=== PATIENT | female | born 1995 | race American Indian/Alaskan Native ===

== ENCOUNTER 2017-02-06 15:46 | Emergency (ER) | payer SELFPAY ==
[2017-02-06 18:20] LABS: Basophils % (Auto) 0.5 % (0.0-1.8); Eosinophils % (Auto) 0.8 % (0.0-4.3); Hematocrit 38.8 % (30.3-42.9); Hemoglobin 12.6 gm/dl (10.1-14.3); Mean Corpuscular HGB Conc 33 % (30-34); Mean Corpuscular Hemoglobin 27 pg (28-32); Mean Corpuscular Volume 83 fl (79-97); Platelet Count 242 K/mm3 (140-440)
[2017-02-06 18:30] LABS: Anion Gap 16 mmol/L; Blood Urea Nitrogen 8 mg/dL (7-17); Calcium 9.5 mg/dL (8.4-10.2); Carbon Dioxide 27 mmol/L (22-30); Chloride 99.9 mmol/L (98-107); Glucose 116 mg/dL (65-100); Potassium 3.9 mmol/L (3.6-5.0); Sodium 139 mmol/L (137-145)
[2017-02-06 18:38] LABS: Bacteria,Urine 1+ /HPF (Negative); Bilirubin,Urine NEG (Negative); Blood,Urine NEG (Negative); Ketones,Urine TR mg/dL (Negative); Leukocyte Esterase,Urine TR (Negative); Mucus,Urine FEW /HPF; Nitrite,Urine POS (Negative); Urobilinogen,Urine < 2.0 mg/dL (<2.0)
[2017-02-07] MEDS ORDERED: TYLENOL PO ONE (02:29)
[2017-02-07] MEDS ORDERED: TORADOL IV ONE (03:20)
[2017-02-07] MEDS ORDERED: NACL 0.9% 1000 ML 1,000 ML IV ONE (03:20)
[2017-02-07] MEDS ORDERED: ZOFRAN IV ONE (03:20)
[2017-02-07] MEDS ORDERED: MORPHINE IV ONE (04:40)
--- NOTE | 2017-02-07 04:58 | Emergency Department Report ---
HPI - General Chief Complaint: Nausea/Vomiting/Diarrhea Time Seen by Provider: 02/07/17 03:21 - HPI HPI: Patient is a 21-year-old female presents for evaluation of abdominal pain. The patient reports abdominal pain for the past 2 days, 8/10 in severity, cramping and sharp in quality at times, exacerbated with retching. She also reports associated nausea. The patient denies fever, chills, night sweats, blood in the stool, dark tarry stool, dysuria, hematuria, flank pain, genital discharge, inability to pass flatus. ED Past Medical Hx - Social History Smoking Status: Never Smoker Substance Use Type: None - Medications Home Medications: Home Medications Medication Instructions Recorded Confirmed Last Taken Type traMADol [Ultram 50 MG tab] 50 mg PO Q6H PRN #12 tablet 12/22/13 Unknown Rx Acetaminophen/Codeine 1 tab PO Q6H PRN #14 tab 07/20/14 Unknown Rx [Acetaminophen-Codeine #3 TAB] Cephalexin [Keflex] 500 mg PO Q6H #28 capsule 07/20/14 Unknown Rx Acetaminophen/Codeine [Tylenol #3] 1 tab PO Q6H PRN #15 tab 02/07/17 Unknown Rx Ondansetron [Zofran TAB] 4 mg PO Q8HR PRN #15 tablet 02/07/17 Unknown Rx ED Review of Systems ROS: Stated complaint: DIZZINESS/VOMITT/DIAREHEA/SWEATING Other details as noted in HPI Constitutional: denies: fever ENT: denies: throat or neck pain Respiratory: denies: cough, shortness of breath Cardiovascular: denies: chest pain Endocrine: denies unexplained weight loss or gain Gastrointestinal: reports abdominal pain, nausea Genitourinary: denies: dysuria Musculoskeletal: denies: leg swelling Skin: denies: rash Neurological: denies: headache Hematological/Lymphatic: denies: easy bleeding or easy bruising Psych: denies sadness or hopelessness Physical Exam - Physical Exam Vital Signs: Vital Signs 02/06/17 02/07/17 02/07/17 17:50 02:26 03:49 Temperature 97.6 F 97.6 F Pulse Rate 81 88 Respiratory 18 20 Rate Blood Pressure 142/88 138/64 O2 Sat by Pulse 100 100 Oximetry 02/07/17 03:50 Temperature Pulse Rate Respiratory Rate Blood Pressure 135/74 O2 Sat by Pulse 100 Oximetry Physical Exam: General: well-nourished, well-developed, no acute distress Head: Normocephalic, atraumatic Eyes: normal sclera ENT: Mucous membranes are pale and dry Neck: No neck stiffness, no cervical adenopathy Respiratory: Breath sounds equal bilaterally, no wheezing, rales, or rhonchi Cardio: S1 and S2 present, no murmurs, rubs, gallops, capillary refill is delayed Abdomen: Normoactive bowel sounds, soft abdomen, generalized abdominal tenderness to palpation present, no rigidity, no guarding or rebound tenderness Musc: No pitting edema Skin: No rash Neuro: no facial drooping, normal speech Psych: Normal affect ED Course Vital Signs 02/06/17 02/07/17 02/07/17 17:50 02:26 03:49 Temperature 97.6 F 97.6 F Pulse Rate 81 88 Respiratory 18 20 Rate Blood Pressure 142/88 138/64 O2 Sat by Pulse 100 100 Oximetry 02/07/17 03:50 Temperature Pulse Rate Respiratory Rate Blood Pressure 135/74 O2 Sat by Pulse 100 Oximetry ED Medical Decision Making - Lab Data Result diagrams: 02/06/17 17:57 02/06/17 17:57 - Medical Decision Making The patient was seen and examined by myself. The patient is placed on a lunchroom monitor and continuous pulse ox. On initial evaluation, the patient was found to be in no distress. Evaluation orders are placed. IV access is established and the patient is given 1 L normal saline fluid bolus and Zofran for nausea, and IV toradol and morphine for pain. Lab results were non- concerning including WBC, hemoglobin, hematocrit, electrolytes, renal function, and urinalysis. The patient was reevaluated and reported that their symptoms were markedly improved. The patient is stable for discharge with outpatient follow-up. The patient is given follow-up and return instructions. The patient expressed understanding and agreed with the plan. The patient is discharged in stable condition. Critical care attestation.: If time is entered above; I have spent that time in minutes in the direct care of this critically ill patient, excluding procedure time. ED Disposition Clinical Impression: Dehydration, Acute generalized abdominal pain Disposition: DISCHARGED TO HOME OR SELFCARE Is pt being admited?: No Does the pt Need Aspirin: No Condition: Stable Instructions: Gastroenteritis (ED), Acute Nausea and Vomiting (ED), Food Poisoning (ED), Near Syncope (ED) Prescriptions: Acetaminophen/Codeine [Tylenol #3] 1 tab PO Q6H PRN #15 tab PRN Reason: Pain Ondansetron [Zofran TAB] 4 mg PO Q8HR PRN #15 tablet PRN Reason: Nausea Referrals: PRIMARY CARE, [Primary Care Provider] - 3-5 Days Time of Disposition: 04:40
[2017-02-07 07:03] VITALS: BP 124/54
== END 2017-02-07 07:03 | disposition home or self-care (01) ==
LOC: ED 15:46
DX: R10.84 Generalized abdominal pain (principal); E86.0 Dehydration
CPT/HCPCS: 36415; 80048; 81001; 81025; 85025; 96361; 96374; 96375; 99284; J1885; J2405; J7030